=== PATIENT | female | born 1960 | race African-American/Black ===

== ENCOUNTER 2024-02-10 21:50 | Emergency (ER) | payer OTHER ==
[~2024-02-10] VITALS: Ht 170.2 cm; Wt 91.6 kg
[2024-02-10] MEDS ORDERED: ETOMIDATE 20 MG/10 ML VIAL ONE (22:01)
[2024-02-10] MEDS: IV NORMAL SALINE 1000 ML BAG IV ONE (22:28)
[2024-02-10] MEDS: ETOMIDATE 20 MG/10 ML VIAL IV ONE ×2 (22:28→22:59)
[2024-02-10] MEDS ORDERED: ATOR10TA PO (22:51)
[2024-02-10] MEDS ORDERED: METO25TA6 PO (22:51)
[2024-02-10] MEDS ORDERED: ALBU18HF2 IH (22:51)
[2024-02-10] MEDS ORDERED: GLIP5TAB13 PO (22:51)
[2024-02-10] MEDS ORDERED: FLUT1BLS11 IH (22:51)
[2024-02-10] MEDS ORDERED: METF-440 PO (22:51)
[2024-02-10] MEDS ORDERED: HYDROMORPHONE 1 MG/1 ML DISP.SYRIN ONE (23:05)
[2024-02-10] MEDS: HYDROMORPHONE 1 MG/1 ML DISP.SYRIN IV ONE (23:19)
[2024-02-10 23:24] LABS: CALCIUM 10.2 mg/dL (8.5-10.1); CREATININE 0.8 mg/dL (0.6-1.3); POTASSIUM 4.2 mmol/L (3.5-5.1)
[2024-02-10 23:29] LABS: ALBUMIN 3.5 g/dL (3.4-5.0); BILIRUBIN,TOTAL 0.4 mg/dL (0.2-1.0); TOTAL PROTEIN, SERUM 7.1 g/dL (6.4-8.2)
[2024-02-11 00:15] VITALS: O2SAT 98
[2024-02-11 00:30] LABS: BASOPHILS % (AUTO) 0.4 % (0.0-2.0); EOSINOPHILS # (AUTO) 0.1 K/uL (0.0-0.7); EOSINOPHILS % (AUTO) 1.1 % (0.0-7.0); HEMATOCRIT 42.8 % (31.2-41.9); HEMOGLOBIN 13.7 g/dL (10.9-14.3); LYMPHOCYTES # (AUTO) 1.6 K/uL (0.8-4.8); LYMPHOCYTES % (AUTO) 20.3 % (20.5-51.5); MEAN CORPUSCULAR HEMOGLOBIN 28.2 uug (24.7-32.8); MEAN CORPUSCULAR HGB CONC 32 g/dL (32.3-35.6); MEAN CORPUSCULAR VOLUME 87.9 fL (75.5-95.3); MONOCYTES # (AUTO) 0.5 K/uL (0.1-1.30); MONOCYTES % (AUTO) 5.8 % (0.0-11.0); NEUTROPHILS # (AUTO) 5.7 K/uL (1.8-8.9); NEUTROPHILS % (AUTO) 72.4 % (38.5-71.5); PLATELET COUNT (AUTO) 273 K/uL (179-408); RED BLOOD CELL COUNT(AUTO) 4.87 MIL/uL (3.63-4.92); RED CELL DISTRIBUTION WIDTH 15.5 % (12.3-17.7); WHITE BLOOD COUNT (AUTO) 7.8 K/uL (3.8-11.8)
[2024-02-11 00:31] LABS: DIFFERENTIAL COMMENT 1
[2024-02-11] MEDS ORDERED: ONDANSETRON 4 MG/2 ML VIAL ONE (01:46)
[2024-02-11] MEDS ORDERED: HYDROMORPHONE 1 MG/1 ML DISP.SYRIN ONE (01:47)
[2024-02-11] MEDS: HYDROMORPHONE 1 MG/1 ML DISP.SYRIN IV ONE (01:53)
[2024-02-11] MEDS: ONDANSETRON 4 MG/2 ML VIAL IV ONE (01:53)
== END 2024-02-11 05:55 | disposition short-term general hospital (02) ==
LOC: ER 21:57
DX: S82.842A Displaced bimalleolar fracture of left lower leg, initial encounter for closed fracture (principal); I10 Essential (primary) hypertension; E11.9 Type 2 diabetes mellitus without complications; J45.909 Unspecified asthma, uncomplicated; Z20.822 Contact with and (suspected) exposure to COVID-19; Z79.84 Long term (current) use of oral hypoglycemic drugs; Z79.52 Long term (current) use of systemic steroids; Z79.899 Other long term (current) drug therapy; Z88.1 Allergy status to other antibiotic agents; W01.0XXA Fall on same level from slipping, tripping and stumbling without subsequent striking against object, initial encounter; Y93.89 Activity, other specified; Y92.090 Kitchen in other non-institutional residence as the place of occurrence of the external cause; Y99.8 Other external cause status
CPT/HCPCS: 27810; 36415; 71045; 73600; 73610; 80053; 85025; 85610; 87426; 93005; 96361; 96374; 96375; 96376; 99285; J1170; J2405; J3490; J7040; A4606; A4663